=== PATIENT | female | born 1975 | race Two or more races ===

== ENCOUNTER 2024-02-14 17:25 | Emergency (ER) | payer MEDICAID, SELFPAY ==
[2024-02-14 17:26] VITALS: BMI 30.7
[2024-02-14 17:36] VITALS: BP 175/92; PULSE 86; RESP 18; TEMP 37.2; O2SAT 99
--- NOTE | 2024-02-14 17:44 | EDNOTE_ITS ---
ED Ear RME/HPI General Chief complaint: Ear Stated complaint: LEFT EAR PAIN, SEEN BY PMD ON ANTIBIOTIC Time Seen by Provider: 02/14/24 17:29 Arrival date/time: 02/14/24 17:25 48-year-old female presents the emergency department complains of left ear pain patient reports she was seen by her primary care doctor yesterday and started on ofloxacin as well as Augmentin patient reports that she still has pain Limitations: no limitations Related Data Previous Rx's ?Medication ?Instructions ?Recorded naproxen 500 mg tablet 500 mg PO BID #20 tabs 01/14/22 acetaminophen-caffeine 500 mg-65 1 tab PO Q6H PRN pain #30 tabs 11/22/22 mg tablet (Excedrin Tension Headache) ibuprofen 800 mg tablet 800 mg PO TID PRN pain #30 tabs 11/22/22 hydrocodone 5 mg-acetaminophen 325 1 tab PO BID PRN pain #8 tabs 02/14/24 mg tablet ibuprofen 800 mg tablet 800 mg PO TID PRN pain #30 tabs 02/14/24 Allergies Allergy/AdvReac Type Severity Reaction Status Date / Time No Known Allergies Allergy Verified 02/14/24 17:29 Review of Systems Review of Systems Systems Reviewed: All systems reviewed, normal except as documented Constitutional Constitutional: Reports system reviewed and no additional complaints, except as documented, Denies fever(s) and Denies headache(s) Eyes Eyes: Reports system reviewed and no additional complaints, except as documented and Denies blurry vision ENT Ears, Nose, Mouth, and Throat: Reports system reviewed and no additional complaints, except as documented, Reports ear discharge, Reports otalgia, Denies headache(s), Denies nasal congestion and Denies nasal discharge Cardiovascular Cardiovascular: Reports system reviewed and no additional complaints, except as documented, Denies chest pain and Denies dyspnea Respiratory Respiratory: Reports system reviewed and no additional complaints, except as documented, Denies chest congestion, Denies cough and Denies dyspnea Gastrointestinal Gastrointestinal: Reports system reviewed and no additional complaints, except as documented and Denies abdominal pain Integumentary/Breasts Skin/Breast: Reports system reviewed and no additional complaints, except as documented and Denies rash Neurologic Neurologic: Reports system reviewed and no additional complaints, except as documented, Reports as per HPI and Denies headache(s) Past Medical History Past Medical History CARDIAC: Negative Congestive Heart Failure RESPIRATORY: Negative Chronic Obstructive Pulmonary Disease (COPD) GENITOURINARY: Negative Renal Disease ENDOCRINE: Negative Diabetes Mellitus Type 1 or Diabetes Mellitus Type 2 Social History SMOKING STATUS: Never smoker SUBSTANCE USE: does not use ED Exam General Limitations: Present no limitations General appearance: Present alert and in no apparent distress Head Head exam: Present atraumatic Eye Eye exam: Present normal appearance, PERRL and EOMI ENT ENT exam: Present mucous membranes moist and other (Discharge left ear) Neck Neck exam: Present normal inspection, full ROM and trachea midline Chest Chest inspection: Present normal inspection and symmetric chest wall rise Respiratory Respiratory exam: Present normal lung sounds bilaterally Cardiovascular Cardiovascular exam: Present regular rate, normal rhythm and normal heart sounds Abdominal Exam Abdominal exam: Present soft and normal bowel sounds Extremities Exam Extremities exam: Present normal inspection and full ROM Back Exam Back exam: Present normal inspection and full ROM Neurological Exam Neurological exam: Present alert, oriented X3 and CN II-XII intact Psychiatric Psychiatric exam: Present normal affect and normal mood Skin Skin exam: Present warm, dry, intact and normal color Course Quality Measures none Orders Category Date Time Status HYDROcodone*/APAP 5/325 [Amo 5/325] Med 02/14/24 17:44 Discontinued 1 tab PO X1 ONE Lidocaine 1% 20 ml [Xylocaine 1% 20 ML] Med 02/14/24 17:44 Discontinued 2.1 ml INFL X1 ONE cefTRIAXone [Rocephin] Med 02/14/24 17:44 Discontinued 1,000 mg IM X1 ONE Vital Signs Vital signs: Vital Signs Temperature 99 F 02/14/24 17:36 Pulse Rate 86 02/14/24 17:36 Respiratory Rate 18 02/14/24 17:36 Blood Pressure 175/92 H 02/14/24 17:36 Pulse Oximetry (%) 99 02/14/24 17:36 Oxygen Delivery Method Room Air 02/14/24 17:36 O2 saturation 99% room air within normal limits Ear Patient data External records reviewed:: [facility] previous records Clinical information provided by:: patient Social determinants that could affect healthcare access:: none Patient has the following chronic illnesses:: None How is presenting disease/condition affected by chronic disease/condition?: no chronic disease Evaluation data The following diagnostics were reviewed and interpreted by me:: other (specify) (N/A) Lab and/or radiology exams considered but not ordered:: Consider not ordered Interpretation Summary: N/A Medications / Prescriptions Medications or Prescriptions considered but not ordered:: Given Medication administrations:: Medication Administration History Discontinued Medications Hydrocodone Bitart/Acetaminophen (Hydrocodone/Apap 5/325 Tablet) 1 tab PO X1 ONE Stop: 02/14/24 17:45 Ceftriaxone Sodium (Ceftriaxone Sod Inj 1,000 Mg Vial) 1,000 mg IM X1 ONE Stop: 02/14/24 17:45 Lidocaine HCl (Lidocaine Hcl 1% 20 Ml Vial) 2.1 ml INFL X1 ONE Stop: 02/14/24 17:45 Given Consultations Consultation(s) initiated? (list below): No Diagnosis Ear Differential Diagnosis: otitis externa and otitis media Most likely diagnosis given after review of the tests above:: otitis externa Admission Indicated Admission indicated?: not indicated Admission Request Was there a request for admission?: No Disposition Plan Disposition Plan: Discharge Discharge Attestation Discharge Attestation: The patient and all family members were given an opportunity to ask questions and understood the discharge instructions. Discharge instructions specifically effects, indications for sooner follow up or return to the emergency department, and the expected course of current diagnosis. Patient condition: Stable Medical Decision Making MDM Narrative MDM Narrative: 48-year-old female presents the emergency department complains of left ear pain patient reports she was seen by her primary care doctor yesterday and started on ofloxacin as well as Augmentin patient reports that she still has pain On exam patient appears to have left otitis externa Patient given Rocephin here in emergency department as well as Amo Patient directed to continue taking antibiotic to finish Patient discharged home in no distress to follow-up with primary care doctor in the next 24 to 48 hours and for any worsening symptoms to return to the ER immediately Differential Diagnosis Differential Diagnosis: Otitis media, otitis externa Medical Records Medical records reviewed: Yes I reviewed the patient's medical records. Discharge Plan Plan Patient Disposition: HOME (Self Care) Disposition Comment: Stable Prescriptions/Referrals Prescriptions/Med Rec: New ibuprofen 800 mg tablet 800 mg PO TID PRN (Reason: pain) Qty: 30 0RF hydrocodone-acetaminophen 5-325 mg tablet 1 tab PO BID MDD 10 PRN (Reason: pain) Qty: 8 0RF No Action Excedrin Tension Headache 500-65 mg tablet 1 tab PO Q6H PRN (Reason: pain) Qty: 30 0RF ibuprofen 800 mg tablet 800 mg PO TID PRN (Reason: pain) Qty: 30 0RF naproxen 500 mg tablet 500 mg PO BID Qty: 20 0RF Problem List Clinical Impression: Otitis externa of left ear Patient/Caregiver Discharge Instructions Education Materials: Anatomy of the Ear Additional Instructions: Please follow up with your primary care doctor in the next 24-48hrs for any worsening symptoms return here immediately Print Language: Ivorian Stand Alone Forms: Shadia Award Info., Patient Portal Info Letter PA/FAMILY COURT COUNSELLOR Supervising Physician PA/FAMILY COURT COUNSELLOR Supervising Physician: Dr. salcido
[2024-02-14] MEDS: HYDROcodone/APAP 5/325 TABLET 1 TAB PO (17:55)
[2024-02-14] MEDS: LIDOCAINE HCL 1% 20 ML VIAL 2.1 ML INFL (17:55)
[2024-02-14] MEDS: cefTRIAXone SOD INJ 1,000 MG VIAL 1000 MG IM (17:55)
== END 2024-02-14 19:50 | disposition home or self-care (01) ==
LOC: SERX 18:07
PROVIDERS: Emergency Provider Emergency Medicine; PCP Obstetrics & Gynecology
DX: H60.92 Unspecified otitis externa, left ear (principal)
CPT/HCPCS: 96372; 99283; J0696; J3490; A9270

== ENCOUNTER 2024-08-17 10:03 | Emergency (ER) | payer MEDICAID, SELFPAY ==
[2024-08-17 10:56] VITALS: BP 169/98; PULSE 83; RESP 18; TEMP 37.4; O2SAT 100; BMI 29.8
--- NOTE | 2024-08-17 11:27 | XR_ITS ---
Examination: CT brain head without contrast. 2-D sagittal coronal reconstructions Date and time of exam:August 17, 2024: 34 hours INDICATIONS: Headaches beginning one week ago CTDI: vol (mGy):49.1 DLP: (mGycm):930 Technique: Multiple CT axial sections of the brain have been obtained, 5 mm slice thickness. Contrast has not been administered. 2-D sagittal, coronal reconstructions have been obtained Low dose protocols were performed. One or more of the following dose reduction techniques were used; automated exposure control, adjustment of the mA and/or KV according to patient size, use of iterative reconstruction technique. Findings: No significant ventricular enlargement. Intra-axial or extra-axial hemorrhage density is not seen. No mass effect or midline shift Basal cisterns are not remarkable. Fourth ventricle is midline. Cranial vault intact. Impression: Negative for acute hemorrhage, mass effect or midline shift Advise clinical correlation follow up accordingly
--- NOTE | 2024-08-17 11:27 | EDNOTE_ITS ---
ED Headache RME/HPI General Chief Complaint: Headache Stated Complaint: HEADACHE Time Seen by Provider: 08/17/24 10:54 Arrival date/time: 08/17/24 10:03 This is a 49-year-old female that comes in with complaints of a headache for the past week. Patient states that headache is left-sided. Patient states she is taken multiple medications to help her head but nothing is helped. Patient was recently diagnosed with a UTI. Patient is still on antibiotics. Patient also was given medications and muscle relaxants to help with pain. Patient states nothing to help. Related Data Previous Rx's ?Medication ?Instructions ?Recorded naproxen 500 mg tablet 500 mg PO BID #20 tabs 01/14 acetaminophen-caffeine 500 mg-65 1 tab PO Q6H PRN pain #30 tabs 11/22/22 mg tablet (Excedrin Tension Headache) ibuprofen 800 mg tablet 800 mg PO TID PRN pain #30 t abs 11/22/22 hydrocodone 5 mg-acetaminophen 325 1 tab PO BID PRN pa in #8 tabs 02/14/24 mg tablet ibuprofen 800 mg tablet 800 mg PO TID PRN pain #30 t abs 02/14/24 baclofen 10 mg tablet 10 mg PO QDAY #20 tabs 08/17 ibuprofen 800 mg tablet 800 mg PO Q6H PRN pain #20 t abs 08/17/24 Allergies Allergy/AdvReac Type Severity Reaction Status Date / Time No Known Allergies Allergy Verified 02/14/24 17:29 Course Orders Category Date Time Status CT head/brain wo con Stat Exams 08/17/24 11:27 Completed Acetaminophen Tab [Tylenol ES Tab] Med 08/17/24 12:24 Discontinued 1,000 mg PO X1 ONE DiphenhydrAMINE INJ [Benadryl Inj] Med 08/17/24 12:24 Discontinued 25 mg IM X1 ONE Ketorolac Inj [Toradol Inj] Med 08/17/24 12:45 Discontinued 60 mg IM X1 ONE Metoclopramide Inj [Reglan Inj] Med 08/17/24 12:24 Discontinued 10 mg IM X1 ONE Vital Signs Vital signs: Vital Signs Temperature 99.4 F 08/17/24 10:56 Pulse Rate 83 08/17/24 10:56 Respiratory Rate 18 08/17/24 10:56 Blood Pressure 169/98 H 08/17/24 10:56 Pulse Oximetry (%) 100 08/17/24 10:56 Oxygen Delivery Method Room Air 08/17/24 10:56 Headache MDM Narrative MDM Narrative:: Spoke to patient at length her exam was unremarkable patient very upset and states that she thinks her 7-year-old with her head because her head is never hurt like this. Patient states she is taking multiple medications and nothing has helped. Patient insisted on a CT scan of her head. ct head shows: Findings: No significant ventricular enlargement. Intra-axial or extra-axial hemorrhage density is not seen. No mass effect or midline shift Basal cisterns are not remarkable. Fourth ventricle is midline. Cranial vault intact. Impression: Negative for acute hemorrhage, mass effect or midline shift Advise clinical correlation follow up accordingly I ordered Toradol, Benadryl, Reglan, and Tylenol. Medications / Prescriptions Medication administrations:: Medication Administration History Discontinued Medications Acetaminophen (Acetaminophen 500 Mg Tablet) 1,000 mg PO X1 ONE Stop: 08/17/24 12:25 Last Admin: 08/17/24 12:36 Dose: 1,000 mg Documented By: Diphenhydramine HCl (Diphenhydramine Inj 50 Mg/Ml Vial) 25 mg IM X1 ONE Stop: 08/17/24 12:25 Last Admin: 08/17/24 12:40 Dose: 25 mg Documented By: Ketorolac Tromethamine (Ketorolac Inj 60 Mg/2 Ml Vial) 60 mg IM X1 ONE Stop: 08/17/24 12:46 Last Admin: 08/17/24 12:37 Dose: 60 mg Documented By: Metoclopramide HCl (Metoclopramide Inj 5 Mg/Ml Vial 2 Ml) 10 mg IM X1 ONE; Protocol Stop: 08/17/24 12:25 Last Admin: 08/17/24 12:42 Dose: 10 mg Documented By: Discharge Plan Plan Patient Disposition: HOME (Self Care) Patient condition on transfer: Stable Prescriptions/Referrals Prescriptions/Med Rec: New baclofen 10 mg tablet 10 mg PO QDAY Qty: 20 0RF ibuprofen 800 mg tablet 800 mg PO Q6H PRN (Reason: pain) Qty: 20 0RF No Action Excedrin Tension Headache 500-65 mg tablet 1 tab PO Q6H PRN (Reason: pain) Qty: 30 0RF ibuprofen 800 mg tablet 800 mg PO TID PRN (Reason: pain) Qty: 30 0RF naproxen 500 mg tablet 500 mg PO BID Qty: 20 0RF ibuprofen 800 mg tablet 800 mg PO TID PRN (Reason: pain) Qty: 30 0RF hydrocodone-acetaminophen 5-325 mg tablet 1 tab PO BID MDD 10 PRN (Reason: pain) Qty: 8 0RF Referrals: Shadia Hebert, [employer] INS[employer]OR [employer] REPA[employer]ER [Primary Care Provider] - In 1 week Problem List Clinical Impression: Muscle tension pain, Headache Patient/Caregiver Discharge Instructions Discharge Activity: activity as tolerated Education Materials: Self-Care for Headaches Additional Instructions: Follow up with primary provider in 1-2 days. Come back to ED if symptoms change or worsen Print Language: Mongolian Stand Alone Forms: Shadia Award Info., Patient Portal Info Letter PA/[employer] TRIMMER Supervising Physician PA/[employer] Supervising Physician: micheal
[2024-08-17] MEDS: ACETAMINOPHEN 500 MG TABLET 1000 MG PO (12:36)
[2024-08-17] MEDS: KETOROLAC INJ 60 MG/2 ML VIAL IM (12:37)
[2024-08-17] MEDS: DiphenhydrAMINE INJ 50 MG/ML VIAL 25 MG IM (12:40)
[2024-08-17] MEDS: METOCLOPRAMIDE INJ 5 MG/ML VIAL 2 ML 10 MG IM (12:42)
== END 2024-08-17 14:19 | disposition home or self-care (01) ==
PROVIDERS: Emergency Provider Emergency Medicine; PCP Nurse Practitioner
DX: R51.9 Headache, unspecified (principal); M79.10 Myalgia, unspecified site
CPT/HCPCS: 70450; 96372; 99284; J1200; J1885; J2765; A9270

== ENCOUNTER → 2024-09-25 | Outpatient (CLI) | payer MEDICAID, SELFPAY ==
--- NOTE | 2024-09-25 14:20 | XR_ITS ---
Examination: Scoliosis survey 2, views. Technique: AP standing thoracic, AP standing lumbar spine, two views. Exam date and time: September 25, 2024 1439 hours INDICATIONS: Scoliosis on clinical examination by physician this month. FINDINGS: Thoracic levoscoliosis 10 degrees Thoracolumbar dextroscoliosis 10 degrees. No acute vertebral body fracture. No segmentation anomalies IMPRESSION: Scoliosis as above
--- NOTE | 2024-09-25 14:20 | XR_ITS ---
Examination: Lumbar spine, 5 views Technique: Lumbar spine AP, lateral, coned lateral lower lumbar spine, bilateral obliques 5 views Exam date and time: September 25, 2024 1439 hours INDICATIONS: Low back pain months FINDINGS: Lumbar dextroscoliosis 10 degrees Moderate osteopenia Mild chronic appearing osteoporotic compressions L3, L2, L1 No acute lumbar fracture Early degenerative disc disease L5-S1 IMPRESSION: Early degenerative disc disease L5-S1
== END | disposition home or self-care (01) ==
LOC: CDIM 14:13
PROVIDERS: PCP Nurse Practitioner; Referring Provider Nurse Practitioner; Visit Provider Nurse Practitioner
DX: M51.379 Other intervertebral disc degeneration, lumbosacral region without mention of lumbar back pain or lower extremity pain (principal); M41.85 Other forms of scoliosis, thoracolumbar region; M41.84 Other forms of scoliosis, thoracic region
CPT/HCPCS: 72082; 72110

== ENCOUNTER → 2024-11-04 | Outpatient (CLI) | payer MEDICAID, SELFPAY ==
--- NOTE | 2024-11-04 14:00 | XR_ITS ---
Examination: Breast ultrasound complete, bilateral Date and time of exam: November 04, 2024 1416 hours INDICATIONS: Left breast swelling and pain 15 years Technique: Real-time grayscale ultrasonographic imaging bilateral breasts, including all 4 quadrants as well as nipple retroareolar and axillary regions. Findings: Sonographic images right breast Benign cysts, the largest in the 9:00 position 6 x 6 mm No solid nodules Sonographic images left breast 12:00 cyst 12 x 9 mm 2:00 solid nodule circumscribed 12 x 9 mm IMPRESSION: BI-RADS Category 2: Benign findings Recommend 6 month left breast sonogram follow-up to document stability of 2:00 nodule left breast described above
--- NOTE | 2024-11-04 15:00 | XR_ITS ---
Examination: Diagnostic digital mammography, bilateral Computer aided detection 3-D breast Tomosynthesis, bilateral Date and time of exam: November 04, 2024 1400 hours Compared to mammograms dating to 11/30/2014 INDICATIONS: Numerous bilateral breast calcifications Technique: Nonmagnified MLO, CC views of the breasts to been obtained, reconstructed from 3-D Tomosynthesis images. R2 computer aided detection program utilized for evaluation of suspicious masses and/or abnormal calcifications. 3-D Tomosynthesis images obtained. Findings: Scattered areas of fibroglandular density. Stable numerous bilateral breast calcifications 10 mm nodule 12:00 position left breast IMPRESSION: BI-RADS Category 0: Incomplete: Need additional imaging evaluation Recommend follow-up spot tomographic views of 10 mm nodule 12:00 position left breast as well as left breast sonography to complete the workup
== END | disposition home or self-care (01) ==
PROVIDERS: Referring Provider Physician Assistant; Visit Provider Physician Assistant
DX: N63.21 Unspecified lump in the left breast, upper outer quadrant (principal); N63.25 Unspecified lump in the left breast, overlapping quadrants
CPT/HCPCS: 76641; 77062; 77066; G0279